=== PATIENT | male | born 1945 | race Caucasian/White ===

== ENCOUNTER 2018-11-17 09:09 | Outpatient (CLI) | payer OTHER ==
[2018-11-17] VITALS (14 sets, daily range): BP systolic 98–150; BP diastolic 54–74; PULSE 43–55
[~2018-11-17] VITALS: Ht 182.9 cm; Wt 71.8 kg
[2018-11-17] MEDS ORDERED: LIPITOR 40MG TA40 MG PO (09:37)
[2018-11-17] MEDS ORDERED: ASPIRIN 81M81 MG/TA2 PO (09:37)
[2018-11-17] MEDS ORDERED: PLAVIX 75MG TAB75 MG PO (09:38)
[2018-11-17] MEDS ORDERED: LANTUS100 U/ML SQ (09:39)
[2018-11-17] MEDS ORDERED: GLUCOPHAGE500 MG/TAB PO (09:40)
[2018-11-17] MEDS ORDERED: NOVLOG SQ (09:41)
[2018-11-17] MEDS ORDERED: PRINIVIL20 MG PO (09:42)
[2018-11-17] MEDS ORDERED: ZESTRIL 10MG10 MG PO (09:42)
--- NOTE | 2018-11-17 10:45 | NUR ---
PT BROUGHT INTO ROOM AND PLACED ON CT TABLE. IMAGES COMPLETED. MONITORING EQUIPMENT PLACED
--- NOTE | 2018-11-17 10:55 | NUR ---
PT IS DOING WELL
--- NOTE | 2018-11-17 11:05 | NUR ---
PT STATES HE IS DOING WELL. NO PAIN OR PROBLEMS
--- NOTE | 2018-11-17 11:10 | NUR ---
PROCEDURE IS COMPLETED. SPECIMEN IN FORMALIN.
--- NOTE | 2018-11-17 11:15 | NUR ---
PT TO EU 9 VIA CART FROM LUNG BIOPSY, REPORT GIVEN, PT C/O "SORENESS" TO RIGHT CHEST, BANDAID TO SITE IS CLEAN AND DRY, NO C/O SOB. CALL LIGHT IN REACH, REVIEWED WITH PT BEDREST AND TO CALL NURSE IF DEVELOPS SOB, PAIN OR DIZZINESS
--- NOTE | 2018-11-17 12:00 | NUR ---
CHEST X-RAY DONE ORDERED, DR TOLEDO CALLED STATES CON'T SAME, AND ORDERED ANOTHER CHEST X-RAY AT 1500. PT HAS NO C/O, STATES PAIN IS BETTER
--- NOTE | 2018-11-17 14:00 | NUR ---
SISTER IN ROOM, PT ATE MEAL, NO C/O, SITS UP IN BED
--- NOTE | 2018-11-17 15:00 | NUR ---
CHEST X-RAY REPEATED, DISCHARGE INST. VERBALLY GIVEN BY DR MCGILL TO LET PT BE DISCHARGED, BANDAID TO SITE REMAINS THE SAME. REVIEWED DISCHARGE WITH PT AND SISTER, ON ACTIVITY, SITE CARE, RESULTS TO DR PANIAGUA, AND TO MONITOR FOR COMPLICATIONS WTIH VERBAL UNDERSTANDING.
--- NOTE | 2018-11-17 15:30 | NUR ---
IV DC'D INTACT, PT UP IN ROOM DRESSED, DISCHARGED AMB. TO CAR WITH SISTER
== END 2018-11-17 15:30 | disposition home or self-care (01) ==
LOC: COL.RAD 09:09
DX: J84.10 Pulmonary fibrosis, unspecified (principal); J95.811 Postprocedural pneumothorax; R91.1 Solitary pulmonary nodule; Z95.1 Presence of aortocoronary bypass graft; Z98.890 Other specified postprocedural states
CPT/HCPCS: 32106

== ENCOUNTER 2020-05-29 16:06 | Inpatient (IN) | payer OTHER ==
[~2020-05-29] VITALS: Ht 183 cm; Wt 73.4 kg
[~2020-05-29 16:06] MED LIST: ASPIRIN 81M81 MG/TA2 PO; GLUCOPHAGE500 MG/TAB PO; LANTUS100 U/ML SQ; LIPITOR 40MG TA40 MG PO; NOVLOG SQ; PLAVIX 75MG TAB75 MG PO; PRINIVIL20 MG PO; ZESTRIL 10MG10 MG PO
[2020-07-10] VITALS (12 sets, daily range): BP systolic 117–163; BP diastolic 49–78; PULSE 44–71; TEMP 97.3–98.6
[2020-07-10] MEDS ORDERED: MASON NATURAL2000 IU PO (06:16)
[2020-07-10 06:20] LABS: INR 1.1 (0.8-3.0); PROTHROMBIN TIME 11.8 SECONDS (9.7-12.8)
--- NOTE | 2020-07-10 06:41 | NUR ---
Patient rounding is completed and patient is asleep in his room at this time.
--- NOTE | 2020-07-10 07:38 | NUR ---
Patient to the PACU for a block with anesthesia at this time.
--- NOTE | 2020-07-10 08:07 | NUR ---
Patient's belongings are taken to the PACU at this time. He has a grocery sack, a patient belongings bag, and a walker - all labeled with patient labels. His glasses are in his shoe in the belonings bag, his dentures are in the grocery sack.
--- NOTE | 2020-07-10 10:59 | NUR ---
Patient up from OR. Alert and oriented. Patient denies pain at this time. Patient states he is still unable to feel LLE. Lamont hose and SCDs to BLE. Pedal pulses intact. Post op VSS and post op fluids infusing per orders. Occlusive dressing to left hip, ice to hip. Denies further needs at this time.
--- NOTE | 2020-07-10 12:51 | NUR ---
Patient states he starting to have pain 4/10 to left hip, medications given per orders
--- NOTE | 2020-07-10 14:27 | NUR ---
Patient continues to complain of pain 9/10 to right hip, additional dose of pain medication given at this time.
--- NOTE | 2020-07-10 18:12 | NUR ---
Patient having increased pain this afternoon, medications given per orders. Brother at bedside this afternoon. SCDs and cheryl manzanares to BLE. Patient sat up on edge of bed today and was able to stand on side of bed and move up on bed. Patient able to reposition independently in bed. Educated patient on pain medications and calling for medications. No further needs at this time. Will report off to date night caregiver.
--- NOTE | 2020-07-10 20:45 | NUR ---
Pt in bed, reports severe left hip pain. States "if I had known how much pain I was going to have, I would have canceled my surgery". Medicated with Oxycodone 10mg po at this time. IVF connected and infusing to right forearm without problem. Has had minimal oral intake.
--- NOTE | 2020-07-10 22:00 | NUR ---
Medicated with [place] 7.5mg 2 tabs po at this time for pain 02/25. Has had minimal oral intake.
--- NOTE | 2020-07-11 01:35 | NUR ---
Medicated with Morphine 2mg IVP and Oxycodone 10mg po for severe pain to left hip. Refuses ice pack.
--- NOTE | 2020-07-11 04:00 | NUR ---
Pt feeling nauseated. Saltines given.
[2020-07-11 05:01] VITALS: BP 181/64; PULSE 66; TEMP 97.6
--- NOTE | 2020-07-11 05:04 | NUR ---
Medicated with Zofran 4mg IVP for nausea. Producing phlegm, no emesis.
[2020-07-11 07:40] LABS: HEMOGLOBIN 11.7 g/dl (13.5-18.0)
[2020-07-11 07:41] LABS: HEMATOCRIT 35.2 % (42.0-52.0)
[2020-07-11 07:49] LABS: CALCIUM 8.3 mg/dL (8.4-10.2); CREATININE, serum 0.7 (0.66-1.25); POTASSIUM 4.1 mmol/L (3.4-5.0)
--- NOTE | 2020-07-11 08:00 | NUR ---
Patient in bed. States he continues to have pain to left hip 12/26, states morphine, norco and cassi have not helped with pain previously. Toradol given per orders. Bulky dressing to right hip is CDI, Lamont hose and SCDs to BLE. Pedal pulses intact. Patient states he is still having occassional nausea. Fluids infusing per orders. Denies additional needs at this time.
--- NOTE | 2020-07-11 08:07 | NUR ---
Shift Assessment completed. Pt dressing to L hip CDI. Pain 8/10 dull in L hip and upper L thigh. INT to R arm intact. AUNDREA hose in place. BP 171/54 w/ hypoactive bowel sounds. Pt complaining of nausea. Broth ordered to room.
[2020-07-11 08:12] VITALS: BP 171/54; PULSE 59; TEMP 97.5
--- NOTE | 2020-07-11 08:35 | NUR ---
PT assisted pt in ambulation w/ walker. Weight bearing tolerated, gait steady. Following ambulation pt felt nausea and began dry heaving. Pain 6/10 to L hip. Pt sitting up in recliner.
--- NOTE | 2020-07-11 09:15 | NUR ---
Pt refused meds d/t nausea. Will hold until nausea subsides.
--- NOTE | 2020-07-11 10:30 | NUR ---
Surgical dressing removed from L hip. No drainage, small amount of dried blood noted, wound edges well approximated and remedios in place. Applied 12 inch Aquacel dressing to L hip.
--- NOTE | 2020-07-11 12:13 | NUR ---
First visit from the hearing health technician. No needs right now.
[2020-07-11 12:31] VITALS: BP 164/65; PULSE 67; TEMP 97.7
--- NOTE | 2020-07-11 13:09 | NUR ---
KENDALL met with the patient to discuss discharge plan. The patient lives in [place] with his sister, Tabby Dc (ph#[phone]). He reports independence with ADLs and has a walker. The patient's PCP is Dr. Cesar Rodriges at the [facility] and he receives his medications on [address]. He reports no difficulties obtaining his meds. The patient does not have a DPOA-HC, but he was interested in completing one while here. KENDALL provided the form. The patient designated his sister, Tabby, and his brother, Jose Alberto Gaitan, as the alternate. KENDALL and LAV CREWMANMindy, witnessed the patient's signature. The patient was provided with the original and some copies. KENDALL placed a copy in the patient's chart. The patient plans to return home with his sister upon discharge. No additional needs at this time.
--- NOTE | 2020-07-11 15:34 | NUR ---
Patient sleeping, respirations even and unlabored
[2020-07-11 16:26] VITALS: BP 131/80; PULSE 93; TEMP 97.6
--- NOTE | 2020-07-11 18:05 | NUR ---
Patient doing well this afternoon, states pain better controled with ultram. Was able to sit up in recliner this afternoon and states decreased nausea. Fluids continue infusing per orders at this time. Patient denies further needs at this time. Will report off to boat detailer.
== END 2020-07-12 12:05 | disposition home or self-care (01) | DRG 470 ==
LOC: INPTSU 07-10 05:13 → JCC 07-10 05:13 → SURG 07-10 07:30 → JCC 07-10 10:50
PROVIDERS: ADMIT Orthopaedic Surgery
PROC: 0SRB0JZ Replacement of Left Hip Joint with Synthetic Substitute, Open Approach (ICD-10-PCS; principal; 2020-07-10 08:30)
DX: M16.12 Unilateral primary osteoarthritis, left hip (principal); B57.2 Chagas' disease (chronic) with heart involvement; Z20.822 Contact with and (suspected) exposure to COVID-19; J44.9 Chronic obstructive pulmonary disease, unspecified; E10.8 Type 1 diabetes mellitus with unspecified complications; I10 Essential (primary) hypertension; R11.2 Nausea with vomiting, unspecified; Z79.82 Long term (current) use of aspirin; Z79.4 Long term (current) use of insulin; Z86.73 Personal history of transient ischemic attack (TIA), and cerebral infarction without residual deficits
CPT/HCPCS: A9284; C1776; J0690; J1815; J1885; J2250; J2270; J2405; J2704; J2795; J3010; J7030

== ENCOUNTER 2021-07-26 10:19 | Day surgery (SDC) | payer OTHER ==
[~2021-07-26] VITALS: Ht 182.9 cm; Wt 76.3 kg
[~2021-07-26 10:19] MED LIST changes: +MASON NATURAL2000 IU PO
[2021-07-26 11:12] VITALS: BP 162/77; PULSE 81; TEMP 97.3
[2021-07-26 11:14] LABS: CALCIUM 9.1 mg/dL (8.4-10.2); CREATININE, serum 0.98 mg/dL (0.72-1.25); POTASSIUM 4.3 mmol/L (3.5-4.5)
--- NOTE | 2021-07-26 13:38 | NUR ---
The patient is having a Peg Tube and Port-A-Cath placed today. The patient's has [employer] for his insurance. KENDALL met with the patient's sister, Tabby (ph#[phone]), to discuss home health and the feedings. The patient lives in [place] with his sister, Tabby. Tabby would prefer to have the feedings from a local [employer] company and home health, but understands that the patient just has [employer]. Tabby states that the patient does not have Medicare and that he is 100% disabled. She states that the patient's PCP is Dr. Rodriges at the [facility]. KENDALL informed Tabby that this SW would need to get in contact with the [facility] to inquire where the [facility] would want the patient's feedings to be filled at. The patient's sister would be interested in home health for nursing to help with education. Since he does not have Medicare, KENDALL informed her how this would also have to be authorized by the [place]. KENDALL contacted THOMAS Clark, with Dr. Rodriges at the [facility]. Amber states that they will need documentation and orders for the peg tube feedings and home health. They will then put in a request for both. She states that their statistical developer will fill the feedings order. KENDALL met with the patient's sister, Tabby, and updated her on the above. Tabby verbalized understanding is agreeable to the plan. KENDALL then staffed with Mahsa, director marketing analytics, about the enteral feedings and to complete the script. Mahsa reports that the patient will not need to start on the peg tube feedings for a few weeks, but she has supplied the patient's sister with a couple days worth of feedings. KENDALL faxed the patient's records and the home health and enteral feedings order to Amber at the [facility].
[2021-07-26 14:30] VITALS: BP 143/67; PULSE 58; TEMP 96.9
--- NOTE | 2021-07-26 14:30 | NUR ---
DR. BURGOS IN TO SPEAK WITH SISTER. GAVE DETAILED INSTRUCTIONS FOR PEG TUBE CARE.
[2021-07-26 14:45] VITALS: BP 111/70; PULSE 54
[2021-07-26] MEDS ORDERED: TYLENOL 500MG500 MG PO (14:45)
[2021-07-26 15:00] VITALS: BP 143/69; PULSE 52
--- NOTE | 2021-07-26 15:45 | NUR ---
1430 PT RETURNED TO BAY 7 VIA CART. ASLEEP, WAKES EASILY TO NAME. POSTOP VITALS STARTS, MONITORS ATTACHED AND ALARMS SET. PT NPO PER DR. BURGOS. PT DENIES ANY PAIN OR NAUSEA. 1445 PT RESTING LOW [place] WITH EYES CLOSED. OPENS EYES AND RESPONDS TO QUESTIONS AND COMMENTS. PT DENIES ANY PAIN OR NAUSEA. 1500 PT RESTING LOW DONALDSON. ALERT AND ORIENTED. REPORTS PAIN OR 1/10, DOES NOT WANT PAIN MEDICATION. REVIEWED DISCHARGE INSTRUCTIONS, EDUCATION MATERIAL WITH SISTER AND PT AND DEMONSTRATED, WITHOUT ACTUAL PEG TUBE HOW, TO FLUSH PEG TUBE.
[2021-07-26] MEDS ORDERED: NORCO 325 MG-51 TAB PO (16:13)
--- NOTE | 2021-07-26 16:52 | NUR ---
1520 PT AND SISTER VERBALIZED UNDERSTANDING OF ALL DISCHARGE INSTRUCTIONS, AND DEMONSTRATION OF PEG TUBE CARE. PT AND SISTER VERBALIZED UNDERSTANDING THAT PT IS TO REMAIN NPO AND THAT NOTHING SHOULD GO THROUGH PEG TUBE FOR 4 HOURS POSTOP. IV REMOVED WITHOUT COMPLICATION. PT DRESSED WITH RN ASSIST. PT REPORTS INCREASE OF PAIN WHILE GETTING DRESSED OF 7/10 AND THAT ABD. BINDER IS "TOO TIGHT". BINDER LOOSEN BY 1.5 - 2 INCHES. PT REPORTS MINIMAL RELIEF. [address] PT PAIN REPORTED TO DR. BURGOS, NO NEW ORDERS. DR. BURGOS WILL COME TO SEE PT. 1600 DR. BURGOS IN [place]AY TO ASSESS PT. ASSISTED DR. BURGOS IN ADJUSTING PEG TUBE, REDRESSING OPERATIVE SITE AND PUT BINDER ON. ADMINISTERED MEDICATIONS PER DR. BURGOS VERBAL ORDER. 1645 PT REPORTS SOME RELIEF OF PAIN. ENCOURAGED PT AND SISTER TO SEEK MEDICAL ATTENTION IF SERVE PAIN PERSIST. TRANSFERED PT VIA WHEELCHAIR TO PERSONAL VEHICLE TO BE DRIVEN HOME BY SISTER.
== END 2021-07-26 16:45 | disposition home or self-care (01) ==
LOC: SDCO 10:19
PROVIDERS: Surgery
DX: C10.9 Malignant neoplasm of oropharynx, unspecified (principal); Z87.891 Personal history of nicotine dependence; Z85.118 Personal history of other malignant neoplasm of bronchus and lung; Z79.01 Long term (current) use of anticoagulants
CPT/HCPCS: C1788; J1644; J7120

== ENCOUNTER 2022-10-18 09:45 | Emergency (ER) | payer OTHER ==
[~2022-10-18] VITALS: Ht 182.9 cm; Wt 56.8 kg
[~2022-10-18 09:45] MED LIST changes: +NORCO 325 MG-51 TAB PO; +TYLENOL 500MG500 MG PO
[2022-10-18 11:00] VITALS: BP 141/72; PULSE 68; TEMP 97.6
== END 2022-10-18 11:00 | disposition home or self-care (01) ==
LOC: COL.ER 09:45
DX: K94.23 Gastrostomy malfunction (principal); F17.200 Nicotine dependence, unspecified, uncomplicated

== ENCOUNTER 2023-09-23 11:57 | Emergency (ER) | payer OTHER ==
[~2023-09-23] VITALS: Ht 182.9 cm; Wt 65.9 kg
[2023-09-23 12:20] VITALS: BP 123/79; TEMP 97.8
[2023-09-23 14:25] VITALS: PULSE 61
== END 2023-09-23 14:25 | disposition home or self-care (01) ==
LOC: COL.ER 11:57
DX: Z43.1 Encounter for attention to gastrostomy (principal)
CPT/HCPCS: 33081